=== PATIENT | male | born 1970 | race Caucasian/White ===

== ENCOUNTER → 2024-01-14 09:30 | Outpatient (BNV) | payer BC, SELFPAY | PROVIDERS: Visit Provider Psychiatry & Neurology Psychiatry | DX: F41.1 Generalized anxiety disorder (principal); F33.1 Major depressive disorder, recurrent, moderate | CPT/HCPCS: 90792; 90832; 99213; 99214 ==

== ENCOUNTER 2024-01-23 08:30 | Outpatient (RCR) | payer BC, SELFPAY ==
[2024-01-09 11:18] VITALS: BP 152/80; PULSE 80
--- NOTE | 2024-01-09 14:11 | PC.ADMIT ---
Patient is a 53 year old male who was referred to [facility] by his therapist d/t increased anxiety and depression that started to interfere with work and home life. He reports his is taking medical leave from work d/t mental health symptoms. Working for [employer] for 33 years. He lives with his 18 year old son and stated that when his son is with him he pretends everything is fine. Having difficulty leaving the home and has been isolating. Patient reports possible trigger to his increase in anxiety and depression is loss of 3 friends within three months and attending all three funerals. Since then he has been thinking about his own mortality and is worrying about everything constantly. Currently patient is alert and oriented x4. Calm and cooperative. His thoughts are clear and logical. He is at [facility] for more support. He presented with depressed mood and anxious affect. Denied SI or HI. He was given a copy of his safety plan if needed. He reports drinking alcohol 4 Truly seltzers every other Friday. Medications reconciled with patient and patient's pharmacy. He stated he is taking medications as prescribed.
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
--- NOTE | 2024-01-12 16:06 | HO.PHPPROGNO ---
Subjective Subjective Date of Service: 01/12/24 Reason For Visit: depression,anxiety Interim History: Updates on interim events over weekend. Had it's ups and downs Went to son's sports games. Their mother did not show, which didnt surprise him. Despite this his kid is doing well. Transient depressive feelings that come and go. Friday better than Friday for no apparent reason. Anxiety a little elevated today, so says he is glad to be at program. He is still not interested in starting medication. He is still contemplating restarting TMS, but at this time has not taken any steps to set up an appointment. He says if he can avoid undergoing TMS he would prefer, citing that one bad experience, and also remains optimistic that PHP will be helpful and is expecting the smoke to clear and that hid depression will disappointment after completing groups therapy. He denies any SI, HI, AH, VH. Medication Compliance: Yes Side effects from medications: No Attending Groups: Yes Review of Systems Acute medical concerns: No Mental Status Exam Mental Status Exam Narrative: Alert, oriented, in no acute distress. Calm, cooperative, engaged. No psychomotor agitation or neurovegetative retardation. Eye contact maintained. Mood depressed, affect constricted. Speech normal. Thought process linear, coherent. Thought content related to stressors, transient hopelessness, denies SI or HI. No paranoia or delusional content elicited. No evidence of psychosis. Insight and judgment - fair but adequate. Assessment & Plan Assessment & Plan (1) DONA (generalized anxiety disorder): Status: Acute Code(s): F41.1 - Generalized anxiety disorder (2) MDD (major depressive disorder), recurrent episode, moderate: Status: Acute Code(s): F33.1 - Major depressive disorder, recurrent, moderate Plan patient declines any psychotropic medication intervention he is open to TMS, has had previous trtmt but is not ready to engage continue treatment pending lab work continue to monitor Patient educated on: diagnosis, medication risk/benefits, TMS and therapeutic strategies Informed Consent: understands Reason for contiued partial hosp. stay Substantial Risk for: inability to function, rapid decompensation and med/psych decompensation Certification I certify that partial hospital treatment is medically necessary due to the symptoms and problems resulting from the patient's mental illness and the failure to treat the patient at the partial hospital level of care would likely result in the patient requiring inpatient psychiatric care which could not be prevented at a less intensive level of care. Total time managing care of this patient today __30__ minutes. Discharge Plan Discharge Attending provider: Snow Delcid Medications: No Action atorvastatin 10 mg tablet 10 mg PO DAILY clonazepam 1 mg tablet 1 mg PO BEDTIME amlodipine 2.5 mg tablet 2.5 mg PO DAILY lorazepam 1 mg tablet 1 mg PO BID PRN (Reason: anxiety) epinephrine 0.3 mg/0.3 mL auto-injector 0.3 mg IM DAILY PRN (Reason: Anaphylaxis) Xarelto 20 mg tablet 20 mg PO DAILY cyanocobalamin (vitamin B-12) [Vitamin B-12] 1,000 mcg Tablet 1,000 mcg PO DAILY cholecalciferol (vitamin D3) [Vitamin D3] 10 mcg (400 unit) Capsule 50,000 unit PO DIRECTED Rx Instructions: Take one tab once a week. Print Language: Jamaican
--- NOTE | 2024-01-15 14:24 | HO.PHP ---
Client's case has been opened and reviewed in treatment team.
--- NOTE | 2024-01-19 10:53 | HO.PHP ---
Vince left the [facility] Admin, Alannah, a voicemail stating that he would not be in attendance to program today and will be here tomorrow. [facility] staff, reached out to Vince to follow up as to what led to him not being able to attend program. Vince shared that there was a family issue that he had to resolve and will be in the program tomorrow. [facility] staff member assessed safety concerns. Vince reported no concerns around SI, plan or intent. Vince will be in program tomorrow.
--- NOTE | 2024-01-22 21:45 | P.PNPSP_ITS ---
Subjective Subjective Date of Service: 01/22/24 Reason For Visit: depression,anxiety Interim History: Patient seen for follow-up, anticipating discharge at the end of program today. He initially presented today as frustrated, stating that he was instead anticipating discharge tomorrow on assumption he would have an extra day due to missing a day. He complained of interaction he had had with staff earlier today who notified him that he was slated for discharge today. Although he was pr ovided with more time at the [facility], he felt the interaction had been unsatisfactory, as he had thought he was being asked not to return tomorrow and to resume next week instead. He was open to having this staff member join our meeting presently, and this staff member was able to clarify that she had offered that patient was able to stay until next week, and that discharge would tentatively be scheduled for Friday, nonetheless would still be able to attend tomorrow. Patient responded positively to support, recognized there had been a misunderstanding and once staff member excused themselves, patient was able to move on with our discussion. He shares that he is also dealing with a friend who is currently suffering a medical crisis and is in the ICU and may not recover. He says the situation is further emotionally provoking due to fact that apparently he and this friend had had a falling out at some point, and even though his friend had reached out to him many times, patient had thwarted the attempts to reconnect, and is currently having a lot of conflicted feelings about the situation. He expresses appreciation for having more?time at the program to process these feelings and situation. His mood is presently kind of emotional says he is not necessarily depressed, but lower than he had been and attributes this to his friend's health and suspects he would be doing better if this situation hadn't happened. He felt he had been making gains during his stay at [facility]. He is still ambivalent about re-engaging in TMS and says he plans to revisit this discussion with his therapist once they reconnect next week. He reports they have a great working relationship and that she was the one who put the referral in the last time he did TMS. Otherwise he denies any acute issues or concerns. Medication compliant with vitamin D, medications well-tolerated and attrbutes some of the lightening of his mood and overal imprpovement in energy and motivation to the vitamin D. I think it's going to be a game changer . Denies any adverse effects.?Denies SI or thoughts of harming self or others at this time. Denies any aggressive ideation or HI. Denies any paranoia or AH or VH. Sleep, appetite, energy stable. Mental Status Exam Mental Status Exam Narrative: Alert, oriented, in no acute distress. Calm, cooperative, engaged. No psychomotor agitation or neurovegetative retardation. Eye contact maintained. Mood dythymic, affect variable, reactive no notable lability or tearfulness. Speech normal. Thought process linear, coherent. Thought content related to stressors, noted interpersonal hypersensitivity, denies hopelessness, denies SI or HI. No paranoia or delusional content elicited. No evidence of psychosis. Insight and judgment - fair but adequate. Assessment & Plan Assessment & Plan (1) DONA (generalized anxiety disorder): Status: Acute Code(s): F41.1 - Generalized anxiety disorder (2) MDD (major depressive disorder), recurrent episode, moderate: Status: Acute Code(s): F33.1 - Major depressive disorder, recurrent, moderate Plan continue vitamin D2 30029 IU weekly continue other regular medications Reviewed TMS r/b/se; patient given pamphlet for TMS services at [facility]. Patient declines any psychotropic medication trials at this time (says he has a history of poor tolerance to psych meds) Will defer coordinating possible return to TMS treatment to outpatient provider (as per patient preference) *Safety plan reviewed *Discharge Diagnoses reviewed with patient, as well as treatment course, discharge plan (including medication regime, medication management, potential side effects) as well as treatment rationale were also revisited *If patient wishes, they are welcome to have their outpatient provider reach out to me for any further questions or clarification as pertains to this patient?s clinical care/treatment during their stay at [facility] (contact information provided to patient) Patient educated on: diagnosis, medication risk/benefits and medical condition Informed Consent: understands Reason for contiued partial hosp. stay Substantial Risk for: stable for discharge and med/psych decompensation Certification I certify that partial hospital treatment is medically necessary due to the symptoms and problems resulting from the patient's mental illness and the failure to treat the patient at the partial hospital level of care would likely result in the patient requiring inpatient psychiatric care which could not be prevented at a less intensive level of care. Total time managing care of this patient today __50__ minutes. Discharge Plan Discharge Attending provider: Snow Delcid Medications: Continued atorvastatin 10 mg tablet 10 mg PO DAILY clonazepam 1 mg tablet 1 mg PO BEDTIME amlodipine 2.5 mg tablet 2.5 mg PO DAILY lorazepam 1 mg tablet 1 mg PO BID PRN (Reason: anxiety) epinephrine 0.3 mg/0.3 mL auto-injector 0.3 mg IM DAILY PRN (Reason: Anaphylaxis) Xarelto 20 mg tablet 20 mg PO DAILY cyanocobalamin (vitamin B-12) [Vitamin B-12] 1,000 mcg Tablet 1,000 mcg PO DAILY cholecalciferol (vitamin D3) [Vitamin D3] 10 mcg (400 unit) Capsule 50,000 unit PO DIRECTED Rx Instructions: Take one tab once a week. Print Language: Mohawk
--- NOTE | 2024-01-23 22:39 | HO.PHPPROGNO ---
Subjective Subjective Date of Service: 01/23/24 Reason For Visit: depression,anxiety Interim History: Patient seen for follow-up, patient decided he was ready for discharge at the end of the day today.? There are no acute issues or concerns. He reports being in a good mood and was appreciative of the extra day and says he knows he can stay until next week but feels he is in a good place and ready for discharge. He also states he plans to call his therapist and set up an appointment for next week and is eager to resume their weekly appointments. He does not feel he needs TMS treatment at this time and says he can always bring it up with his OP treaters if depression returns. . Mood is stable.? Denies any hopelessness or SI. Denies thoughts of harming self or others at this time. Denies any aggressive ideation or HI. Denies any paranoia or AH or VH. Sleep, appetite, energy stable. Medication Compliance: Yes Side effects from medications: No Attending Groups: Yes Review of Systems Acute medical concerns: No Mental Status Exam Mental Status Exam Narrative: Alert, oriented, in no acute distress. Calm, cooperative. Mood stable, affect appropriate. Speech normal. Thought process linear, coherent, more goal-directed. Thought content related to stressors, future-oriented, denies any helplessness, hopelessness or SI.? No aggressive ideation or HI. No paranoia or delusional content elicited. No evidence of psychosis. Insight and judgment fair-good. Assessment & Plan Assessment & Plan (1) DONA (generalized anxiety disorder): Status: Acute Code(s): F41.1 - Generalized anxiety disorder (2) MDD (major depressive disorder), recurrent episode, moderate: Status: Acute Code(s): F33.1 - Major depressive disorder, recurrent, moderate Plan Discharge from [facility] patient declines any psychotropic medication intervention or referral to TMS Will defer further treatment and psychiatric management to outpatient provider *Safety plan reviewed *Discharge Diagnoses reviewed with patient, as well as treatment course, discharge plan (including medication regime, medication management, potential side effects) as well as treatment rationale were also revisited *If patient wishes, they are welcome to have their outpatient provider reach out to me for any further questions or clarification as pertains to this patient?s clinical care/treatment during their stay at [facility] (contact information provided to patient) Patient educated on: diagnosis and medication risk/benefits Informed Consent: understands Reason for contiued partial hosp. stay Substantial Risk for: stable for discharge Certification I certify that partial hospital treatment is medically necessary due to the symptoms and problems resulting from the patient's mental illness and the failure to treat the patient at the partial hospital level of care would likely result in the patient requiring inpatient psychiatric care which could not be prevented at a less intensive level of care. Total time managing care of this patient today __30__ minutes. Discharge Plan Discharge Attending provider: Snow Delcid Medications: Continued atorvastatin 10 mg tablet 10 mg PO DAILY clonazepam 1 mg tablet 1 mg PO BEDTIME amlodipine 2.5 mg tablet 2.5 mg PO DAILY lorazepam 1 mg tablet 1 mg PO BID PRN (Reason: anxiety) epinephrine 0.3 mg/0.3 mL auto-injector 0.3 mg IM DAILY PRN (Reason: Anaphylaxis) Xarelto 20 mg tablet 20 mg PO DAILY cyanocobalamin (vitamin B-12) [Vitamin B-12] 1,000 mcg Tablet 1,000 mcg PO DAILY cholecalciferol (vitamin D3) [Vitamin D3] 10 mcg (400 unit) Capsule 50,000 unit PO DIRECTED Rx Instructions: Take one tab once a week. Print Language: Welsh
== END 2024-01-23 23:59 | disposition home or self-care (01) ==
LOC: HO.PHPA 08:30
PROVIDERS: Visit Provider Psychiatry & Neurology Psychiatry
DX: F33.1 Major depressive disorder, recurrent, moderate (principal); F41.1 Generalized anxiety disorder; Z79.899 Other long term (current) drug therapy
CPT/HCPCS: 90791; 90853

== ENCOUNTER → 2024-05-05 09:45 | Outpatient (BNV) | payer BC, SELFPAY | PROVIDERS: Visit Provider Psychiatry & Neurology Psychiatry | DX: F33.1 Major depressive disorder, recurrent, moderate (principal); F41.1 Generalized anxiety disorder | CPT/HCPCS: 90792; 90832; 99213; 99499 ==

== ENCOUNTER 2024-05-28 08:15 | Outpatient (RCR) | payer BC, SELFPAY ==
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
[2024-05-05 11:46] VITALS: BMI 52.7
[2024-05-05 12:19] VITALS: BP 150/78; PULSE 76; TEMP 36.5
--- NOTE | 2024-05-05 14:46 | PC.ADMIT ---
Patient is a 54 year old male who was referred to [facility] by his therapist d/t increased sxs of depression and anxiety. Patient has not been able to work d/t symptoms and has been on FMLA since January 2024. Patient stated he has tried many different types of antidepressants all of which have been ineffective. He reports that he had TMS treatment 3 years ago and stated that had worked for him however his insurance will not let him continue treatment with TMS unless he tries some antidepressants he has not tried in the past. He stated he has not tried Wellbutrin or Lexapro and plans on discussing these medications with the PCP prescriber. He is unable to identify a trigger to his symptoms. He has a dx of MDD and DONA. Patient's 18 year old son lives with him. Patient reports he isolates and has difficulty leaving the house. Denied any issues with substances. Socially uses alcohol having one drinking about once per month. Patient is alert and oriented x4. Calm and cooperative. He presented with depressed mood and anxious affect. When meeting he stated he felt like he was having a panic attack. Stated he felt extremely anxious. Denied SI, no HI. He was given a copy of his safety plan if needed. He stated he was glad to be at [facility] and get support. He has been to [facility] in the past. Medications reconciled with patient and patient's pharmacy. He reports taking medications as prescribed.
--- NOTE | 2024-05-06 15:53 | HO.PHP ---
Client's case has been opened and reviewed in team.
--- NOTE | 2024-05-11 07:56 | HO.PHP ---
PHP staff member reached out to Vince due to him leaving a message for the admin stating that he is not coming into the program due to being under the weather and will be here tomorrow. ELISA assessed any safety concerns, Vince denied any safety concerns and reported no concerns around SI, plan or intent. Vince will be in attendance to program tomorrow.
--- NOTE | 2024-05-12 14:08 | PC.NURSE ---
Vince reports he is not tolerating the Wellbutrin. Stated he had diarrhea over the weekend which has subsided however reports nausea and a feeling of being disoriented. Dr Delcid is aware and spoke to Vince via telephone. Patient to discontinue Wellbutrin and start Lexapro 5 mg daily.
--- NOTE | 2024-05-13 21:34 | PM.EVENT ---
Event Note Date of Service: 05/13/24 Event Note: Received call from staff nurse, who was sitting with patient who was complaining of poor tolerance to Wellbutrin. Is currently at XL 150 mg, start over the weekend, was experiencing worsening anxiety, shakiness, nausea, diarrhea, palpitations. He continues to feel unwell on it, but tried pushing through with modest improvent in symptoms. Denies coffee or caffeine use, has been taking on a near empty stomach but in recent days trying to take with a snack (banana) but is usually does not eat breakfast in the morning. We reviewed options including ways to improve tolerance vs switching to another antidepressants. Patient opting to switch to Lexapro. Time Spent With Patient Time: Total time managing care of this patient today __15__ minutes.
--- NOTE | 2024-05-14 12:18 | HO.PHPPROGNO ---
Subjective Subjective Date of Service: 05/14/24 Reason For Visit: depression,anxiety Interim History: This morning was really bad . States he started on the escitalopram 5 mg tab yesterday, took 1/2 tablet (2.5 mg) around 3:30pm, later experienced some nausea which it hit me around 8pm . Says he was a little disoriented and woke up with it (the nausea) . He says the nausea has abated now, he also had felt a fluttery feeling an hour ago but says he is willing to attribute this to a couple of triggers . He is really wanting to try to stick with it. He does feel he has come to expect some side effects but is hoping to continue to move up slowly. I suggest we remain at 2.5 mg for now to give him time to adjust which he agrees to seems relieved to hear that he can take as long as he needs to get up to a therapeutic dose. Better to take an extra time his body may need to afford him treatment for the anxiety. Medication Compliance: Yes Side effects from medications: No Attending Groups: Yes Review of Systems Acute medical concerns: No Mental Status Exam Mental Status Exam Narrative: Pleasant. Engaged. Casually dressed and presented. Organized. Mood is anxious, depressed. No thoughts of or SI. No HI. No agitation or psychosis. Insight and judgment fair Diagnostics Vital Signs (24Hr): BMI result Body Mass Index 52.7 Assessment & Plan Assessment & Plan (1) MDD (major depressive disorder), recurrent episode, moderate: Status: Acute Code(s): F33.1 - Major depressive disorder, recurrent, moderate (2) DONA (generalized anxiety disorder): Status: Acute Code(s): F41.1 - Generalized anxiety disorder Assessment and Plan: rule out other contributing causes (medical) for anxiety - especially given patient's exquisite hypersensitivity to antidepressant medication, and propensity toward serotonergic side effects (vs somatization) Plan continue slow titration of Lexapro, currently at 2.5 mg daily patient is prescribed both lorazepam (for anxiety/anxiety attacks) and clonazepam for sleep (both he uses sparingly) by OP provider continue vitamin B12 1000 mcg qd continue vitamin D3 25 mcg 1000 IU continue other medications - amlodipine 2.5 mg qd, atorvastatin 20 mg qd, Xarelto 20 mg qd, epinephrine 0.3 IM prn pt has had previous TMS trtmt, insurance recently rejected coverage until patient fails 2 antidepressant trials offered routine lab work, however says PCP recently ordered labs 3 months ago vit D level noted to be 19.7 (suggest asking PCP about higher vit D dose continue to monitor Certification I certify that partial hospital treatment is medically necessary due to the symptoms and problems resulting from the patient's mental illness and the failure to treat the patient at the partial hospital level of care would likely result in the patient requiring inpatient psychiatric care which could not be prevented at a less intensive level of care. Total time managing care of this patient today ____ minutes. Discharge Plan Discharge Attending provider: Snow Delcid Medications: New escitalopram oxalate 5 mg tablet 5 mg PO DAILY Qty: 30 0RF Rx Instructions: take 1/2 tablet po daily for 1-2 days before increase to 1 tablet po daily Continued clonazepam 1 mg tablet 1 mg PO BEDTIME amlodipine 2.5 mg tablet 2.5 mg PO DAILY lorazepam 1 mg tablet 1 mg PO BID PRN (Reason: anxiety) epinephrine 0.3 mg/0.3 mL auto-injector 0.3 mg IM DAILY PRN (Reason: Anaphylaxis) Xarelto 20 mg tablet 20 mg PO DAILY cyanocobalamin (vitamin B-12) [Vitamin B-12] 1,000 mcg Tablet 1,000 mcg PO DAILY atorvastatin 20 mg Tablet 20 mg PO DAILY cholecalciferol (vitamin D3) [Vitamin D3] 25 mcg (1,000 unit) Capsule 25 mcg PO DAILY Stand Alone Forms: Patient Portal Discharge page Patient Education: Depression (DC) Print Language: Lithuanian
--- NOTE | 2024-05-17 15:02 | HO.PHP ---
Vince was not scheduled today due to a medical appointment.
--- NOTE | 2024-05-20 15:28 | HO.PHP ---
[facility] staff member reached out to Tigrenicolas to explore if he would like an extension in the program. Vince voiced that he would like an extension and was just speaking to his therapist about this since his therapist will be on vacation next week. [facility] staff member informed Tigrenicolas his discharge date is now May 28, 2024.
--- NOTE | 2024-05-20 21:31 | P.PNPSP_ITS ---
Subjective Subjective Date of Service: 05/20/24 Reason For Visit: depression,anxiety Interim History: Mood continues to be depressed, anxious. How I am feeling day to day depends currently alludes to a few family things going on but nothing impeding my progress . Patient has been able to push through the initial side effects of starting on Lexapro, currently at 2.5 mg. Going okay, not too bad. I'm starting to feel a little hopeful at the prospect of staying on medication and hopefully be able to benefit from treatment. He notes this is the first time I have gotten this far with medication . He appreciates the advice of pairing up taking the Lexapro with his prn Ativan and feels this was a helpful strategy, agreeing that anticipatory anxiety of starting on medications has likely contributed to more heightened sensivity/side effects he has experienced on antidepressant medications. Now that he has persevered and the initial side effects abated, he feels more motivated to stick to it and says he would like to increase the dose to the whole tablet. Given medication hypersensitivity, suggested taking as separate 1/2 tablet doses a couple of hours apart now that he is tolerating 1/2 tablet at time. Sleep, appetite, stable. Energy low. Medication Compliance: Yes Side effects from medications: No Attending Groups: Yes Review of Systems Acute medical concerns: No Mental Status Exam Mental Status Exam Narrative: Pleasant. Engaged. Casually dressed and presented. Organized. Some anxiety evident. Mood is low. No thoughts of or SI. No HI. No agitation or psychosis. Insight and judgment fair Diagnostics Vital Signs (24Hr): BMI result Body Mass Index 52.7 Assessment & Plan Assessment & Plan (1) MDD (major depressive disorder), recurrent episode, moderate: Status: Acute Code(s): F33.1 - Major depressive disorder, recurrent, moderate (2) DONA (generalized anxiety disorder): Status: Acute Code(s): F41.1 - Generalized anxiety disorder Plan Presents with MDD and DONA, with depression increasing more x 3 months. Is interested in TMS but also med trial. Also needs 2 failed med trials before insurance will apprve TMS). Was started on Wellbutrin but this was not tolerated (palpitations, shaky, unsteady, nausea, feeling unwell). Typically does not eat breakfast which may make continued trtmt with WB difficult to tolerate. Transit ioned over to Lexapro. increase up to 5 mg daily (may split as 2.5 mg bid) continue to utilize prn lorazepam with Lexapro with dose increases to help mitigate anticipitory anxiety/potential side effects patient is prescribed both lorazepam (for anxiety/anxiety attacks) and clonazepam for sleep (both he uses sparingly) patient may consider self-referral back to TMS (insurance requiring patient t rial medication) continue vitamin B12 1000 mcg qd continue vitamin D3 25 mcg continue other medications - amlodipine 2.5 mg qd, atorvastatin 20 mg qd, Xarelto 20 mg qd, epinephrine 0.3 IM prn continue to monitor Patient educated on: diagnosis, medication risk/benefits and TMS (Patient considers TMS his back-up plan still. He is hoping medication proves to be eff ective. Reportedly his insurance is requiring he has 2 med trials before returning to TMS treatment. ) Informed Consent: understands Reason for contiued partial hosp. stay Substantial Risk for: rapid decompensation and med/psych decompensation Certification I certify that partial hospital treatment is medically necessary due to the symptoms and problems resulting from the patient's mental illness and the failure to treat the patient at the partial hospital level of care would likely result in the patient requiring inpatient psychiatric care which could not be prevented at a less intensive level of care. Total time managing care of this patient today __30__ minutes. Discharge Plan Discharge Attending provider: Snow Delcid Medications: New escitalopram oxalate 5 mg tablet 5 mg PO DAILY Qty: 30 0RF Rx Instructions: take 1/2 tablet po daily for 1-2 days before increase to 1 tablet po daily No Action clonazepam 1 mg tablet 1 mg PO BEDTIME amlodipine 2.5 mg tablet 2.5 mg PO DAILY lorazepam 1 mg tablet 1 mg PO BID PRN (Reason: anxiety) epinephrine 0.3 mg/0.3 mL auto-injector 0.3 mg IM DAILY PRN (Reason: Anaphylaxis) Xarelto 20 mg tablet 20 mg PO DAILY cyanocobalamin (vitamin B-12) [Vitamin B-12] 1,000 mcg Tablet 1,000 mcg PO DAILY atorvastatin 20 mg Tablet 20 mg PO DAILY cholecalciferol (vitamin D3) [Vitamin D3] 25 mcg (1,000 unit) Capsule 25 mcg PO DAILY Print Language: Monegasque
--- NOTE | 2024-05-28 21:36 | P.PNPSP_ITS ---
Subjective Subjective Date of Service: 05/28/24 Reason For Visit: depression,anxiety Interim History: Patient seen for follow-up, anticipating discharge at the end of program today.? I'm up to 5 mg now with a cracker . He feels he is making slow but steady progress and presents as brighter and more hopeful. No more nausea...but this is the most success I've had . He plans to continue at 5 mg for another week and will try bumping up to 7.5 mg next week. I suggest he could stagger the dose, take the addition 1/2 tablet by a few hours from the 5 mg which he thought was a grand idea. Denies any no acute issues or concerns. Medication compliant, increasingly tolerant of the medication . Has adjust now to 5 mg dose. Denies any adverse effects.? Mood is feeling okay .? Denies any hopelessness or SI. Sleep, appetite, energy intact Medication Compliance: Yes Side effects from medications: No Attending Groups: Yes Review of Systems Acute medical concerns: No Mental Status Exam Mental Status Exam Narrative: Pleasant. Engaged. Casually dressed and presented. Organized. Some anxiety evident. Mood is anxious, but feeling more hopeful. Affect brighter, anxious. No thoughts of or SI. No HI. No agitation or psychosis. Insight and sharon gment fair-good Diagnostics Vital Signs (24Hr): BMI result Body Mass Index 52.7 Assessment & Plan Assessment & Plan (1) DONA (generalized anxiety disorder): Status: Acute Code(s): F41.1 - Generalized anxiety disorder Assessment and Plan: rule out other contributing causes (medical) for anxiety - especially given patient's exquisite hypersensitivity to antidepressant medication, and propensity toward serotonergic side effects (vs somatization) (2) MDD (major depressive disorder), recurrent episode, moderate: Status: Acute Code(s): F33.1 - Major depressive disorder, recurrent, moderate Plan DIscharge from [facility] continue slow titration of Lexapro, currently at 5 mg daily patient is prescribed both lorazepam (for anxiety/anxiety attacks) and clonazepam for sleep (both he uses sparingly) by OP provider patient would like to defer TMS for now, and focus on gradually titrating Lexapro which he will continue to do with his OP provider continue vitamin B12 1000 mcg qd continue vitamin D3 25 mcg continue other medications - amlodipine 2.5 mg qd, atorvastatin 20 mg qd, Xarelto 20 mg qd, epinephrine 0.3 IM prn Wellbutrin trialed, did not tolerate due to chest tightness, palpitations patient declined to get routine lab work done (says his PCP regularly monitors) will defer further medication management to outpatient provider in the interim if patient has any questions or is in need of refills, he may call the program to reach me Patient educated on: diagnosis, medication risk/benefits and TMS Informed Consent: understands Reason for contiued partial hosp. stay Substantial Risk for: stable for discharge Certification I certify that partial hospital treatment is medically necessary due to the symptoms and problems resulting from the patient's mental illness and the failure to treat the patient at the partial hospital level of care would likely result in the patient requiring inpatient psychiatric care which could not be prevented at a less intensive level of care. Total time managing care of this patient today _30___ minutes. Discharge Plan Discharge Attending provider: Snow Delcid Medications: New escitalopram oxalate 5 mg tablet 5 mg PO DAILY Qty: 30 0RF Rx Instructions: take 1/2 tablet po daily for 1-2 days before increase to 1 tablet po daily Continued clonazepam 1 mg tablet 1 mg PO BEDTIME amlodipine 2.5 mg tablet 2.5 mg PO DAILY lorazepam 1 mg tablet 1 mg PO BID PRN (Reason: anxiety) epinephrine 0.3 mg/0.3 mL auto-injector 0.3 mg IM DAILY PRN (Reason: Anaphylaxis) Xarelto 20 mg tablet 20 mg PO DAILY cyanocobalamin (vitamin B-12) [Vitamin B-12] 1,000 mcg Tablet 1,000 mcg PO DAILY atorvastatin 20 mg Tablet 20 mg PO DAILY cholecalciferol (vitamin D3) [Vitamin D3] 25 mcg (1,000 unit) Capsule 25 mcg PO DAILY Stand Alone Forms: Patient Portal Discharge page Patient Education: Depression (DC) Print Language: Bermudian
== END 2024-05-28 23:59 | disposition home or self-care (01) ==
LOC: HO.PHPA 08:15
PROVIDERS: Visit Provider Psychiatry & Neurology Psychiatry
DX: F33.1 Major depressive disorder, recurrent, moderate (principal); F41.1 Generalized anxiety disorder; Z79.899 Other long term (current) drug therapy
CPT/HCPCS: 90791; 90853